=== PATIENT | female | born 1965 | race Asian ===

== ENCOUNTER → 2019-04-09 17:14 | Outpatient (CLI) | payer BC, SELFPAY ==
--- NOTE | ~2019-04-09 | XR_ITS ---
EXAMINATION: XR shoulder LT min 2V EXAM DATE: 04/09/2019 17:35 INDICATION: No known recent injury provided at this time. Pain of the left shoulder. TECHNIQUE: The following left shoulder projections obtained: frontal projection with internal rotatio n, frontal projection with external rotation, Grashey, and axillary (4+ views). There is no prior st udy for comparison. FINDINGS: No evidence of left shoulder rotator cuff calcific tendinosis. There is mild glenohumeral , moderate acromioclavicular joint primary osteoarthritis. There are no acute fractures or dislocatio ns identified. There is no subcutaneous gas. The soft tissue is unremarkable. There are no radiop aque foreign bodies. IMPRESSION: Left shoulder osteoarthritis, moderate at the acromioclavicular joint. Reviewed, dictated and finalized at location A. T DIPPER IMPRESSION: Left shoulder osteoarthritis, moderate at the acromioclavicular cruz hong.
== END ==
PROVIDERS: PCP Internal Medicine; Visit Provider Internal Medicine
DX: M19.012 Primary osteoarthritis, left shoulder (principal)
CPT/HCPCS: 73030